=== PATIENT | male | born 2000 | race Caucasian/White ===

== ENCOUNTER 2023-04-12 17:30 | Emergency (ER) | payer OTHER ==
[~2023-04-12] VITALS: Ht 182.9 cm; Wt 72.7 kg
[2023-04-12 17:48] VITALS: TEMP 98.1
[2023-04-12 18:57] VITALS: BP 128/80; PULSE 74
== END 2023-04-12 18:57 | disposition home or self-care (01) ==
LOC: COL.ER 17:30
DX: M25.562 Pain in left knee (principal)